=== PATIENT | male | born 1965 | race Caucasian/White ===

== ENCOUNTER 2017-02-11 13:02 | Emergency (ER) | payer MEDICARE, BC ==
[~2017-02-11 13:02] MED LIST: ASPIRIN81 MG PO; COREG 25MG TAB25 MG PO; FLEXERIL 10 MG10 MG PO; HUMALOG100 UNIT/1 SQ; HUMULIN N100 UNIT/1 SQ; HYDROXYZINE HCL25 MG PO; KEPPRA 500 MG500 MG PO; LANSOPRAZOLE30 MG PO; LIPITOR TAB 2020 MG PO; METOCLOPRAMIDE H5 MG PO; NEURONTIN 400400 MG PO; NORVASC 5 MG TAB5 MG PO; OXYCODONE HCL15 MG PO; PLAVIX 75 MG TA75 MG PO; PRED-G 1% EYE DR5 ML OP/OT; PROCRIT10000 UNIT INJ; PROMETHAZINE12.5 M1 PO; RENVELA800 MG PO; SENSIPAR30 MG PO; SYMBICORT 80-41 INHA INH; TRAZODONE HCL100 MG PO; VIRT-VITE PLUS T5 MG PO; VITAMIN D50000 UNIT PO; ZOLOFT100 MG PO
[2017-02-11 14:30] LABS: HEMOGLOBIN 12.1 gm/dl (14.0-17.5); RED BLOOD COUNT 3.87 M/UL (4.20-5.50); WHITE BLOOD COUNT 5.4 K/UL (4.5-11.0)
== END 2017-02-11 17:10 | disposition home or self-care (01) ==
LOC: ER1 13:02
PROVIDERS: Emergency Medicine
DX: E11.649 Type 2 diabetes mellitus with hypoglycemia without coma (principal); E11.22 Type 2 diabetes mellitus with diabetic chronic kidney disease; I11.0 Hypertensive heart disease with heart failure; N18.6 End stage renal disease; D64.9 Anemia, unspecified; D69.6 Thrombocytopenia, unspecified; G40.909 Epilepsy, unspecified, not intractable, without status epilepticus; F17.200 Nicotine dependence, unspecified, uncomplicated; Z99.2 Dependence on renal dialysis
CPT/HCPCS: 36415; 71010; 80053; 82962; 84484; 85025; 93005; 99284

== ENCOUNTER → 2017-03-03 | Outpatient (CLI) | payer MEDICARE, BC | LOC: US 09:55 | DX: R74.0 Nonspecific elevation of levels of transaminase and lactic acid dehydrogenase [LDH] (principal); Z90.49 Acquired absence of other specified parts of digestive tract; N28.89 Other specified disorders of kidney and ureter | CPT/HCPCS: 76705 ==

== ENCOUNTER 2021-03-08 19:06 | Emergency (ER) | payer OTHER ==
[~2021-03-08 19:06] MED LIST changes: +ARTIFICIAL TEAR15 M2 EYEBOTH; -ASPIRIN81 MG PO; +CARDURA4 MG PO; +CENTRUM COMPLE1 EACH PO; +COMBIVENT RESPIM4 GM INH; +COZAAR100 MG PO; +DESYREL 50 MG T50 MG PO; +DILANTIN100 MG PO; +ECOTRIN81 MG PO; +GABAPENTIN100 MG PO; -HUMALOG100 UNIT/1 SQ; -HUMULIN N100 UNIT/1 SQ; +HYDRALAZINE HC100 MG PO; +MEDROL DOSEPAK 24 MG PO; +MEGACE 400400 MG/10 PO; +NORVASC10 MG PO; +PROCARDIA XL60 MG PO; +PROTONIX40 MG PO; +SEROQUEL25 MG PO; +SPIRIVA RESPIMAT4 GM INH; +VANCOMYCIN1 GM/2002 IV; +ZYRTEC10 M3 PO; +ZYRTEC10 MG PO
[2021-03-08 19:47] LABS: HEMOGLOBIN 7.5 gm/dl (14.0-17.5); RED BLOOD COUNT 2.44 M/UL (4.20-5.50); WHITE BLOOD COUNT 2.6 K/UL (4.5-11.0)
[2021-03-20] MEDS ORDERED: RENVELA800 MG PO (01:57)
[2021-03-20] MEDS ORDERED: NOVOLOG 10100 UNITS1 SC (07:20)
[2021-03-20] MEDS ORDERED: NOVOLIN N100 UNIT/1 SC (07:21)
== END 2021-03-09 00:33 | disposition home or self-care (01) ==
LOC: ER1 19:06
PROVIDERS: Family Medicine
DX: I12.0 Hypertensive chronic kidney disease with stage 5 chronic kidney disease or end stage renal disease (principal); N18.6 End stage renal disease; E11.22 Type 2 diabetes mellitus with diabetic chronic kidney disease; D63.1 Anemia in chronic kidney disease; F17.210 Nicotine dependence, cigarettes, uncomplicated; Z90.49 Acquired absence of other specified parts of digestive tract; Z88.5 Allergy status to narcotic agent; Z88.0 Allergy status to penicillin; Z88.8 Allergy status to other drugs, medicaments and biological substances
CPT/HCPCS: 36430; 80053; 85025; 86850; 86900; 86901; 86920; 99283; P9016

== ENCOUNTER 2021-03-20 10:35 | Observation (INO) | payer OTHER ==
[~2021-03-20] VITALS: Ht 182.9 cm; Wt 65.8 kg
[~2021-03-20 10:35] MED LIST changes: +NOVOLIN N100 UNIT/1 SC; +NOVOLOG 10100 UNITS1 SC
[2021-03-20 11:30] LABS: HEMOGLOBIN 7.3 gm/dl (14.0-17.5); RED BLOOD COUNT 2.34 M/UL (4.20-5.50); WHITE BLOOD COUNT 2.9 K/UL (4.5-11.0)
[2021-03-20] MEDS ORDERED: CARDURA 2MG TAB2 MG PO (13:53)
[2021-03-20] MEDS ORDERED: BUTRANS1 EAC2 TD (13:57)
[2021-03-20] MEDS ORDERED: CATAPRES 0.1MG0.1 MG PO (13:58)
[2021-03-20] MEDS ORDERED: MINIPRES CAP 2 M2 MG PO (14:06)
[2021-03-20] MEDS ORDERED: HYDROCODON-ACE1 EAC2 PO (14:07)
[2021-03-20] MEDS ORDERED: MEGACE 400400 MG/10 PO (14:07)
[2021-03-20] MEDS ORDERED: LISINOPRIL20 MG PO (14:11)
[2021-03-20] MEDS ORDERED: SYNTHROID 50 M50 MCG PO (14:11)
[2021-03-20] MEDS ORDERED: LOPRESSOR50 MG PO (14:12)
[2021-03-20] MEDS ORDERED: ASPIRIN81 MG PO (14:15)
[2021-03-21 04:18] LABS: HEMOGLOBIN 7.4 gm/dl (14.0-17.5); RED BLOOD COUNT 2.33 M/UL (4.20-5.50); WHITE BLOOD COUNT 2.8 K/UL (4.5-11.0)
[2021-03-21] MEDS ORDERED: TRAZODONE HCL100 MG PO (12:01)
== END 2021-03-21 18:15 | disposition home or self-care (01) ==
LOC: ER1 10:35 → MED SURG 4 13:22 → CDU 13:22 → MED SURG 4 14:48
PROVIDERS: Emergency Medicine; Physician Assistant Medical; ADMIT Internal Medicine
DX: G93.40 Encephalopathy, unspecified (principal); E87.5 Hyperkalemia; I13.2 Hypertensive heart and chronic kidney disease with heart failure and with stage 5 chronic kidney disease, or end stage renal disease; E11.22 Type 2 diabetes mellitus with diabetic chronic kidney disease; N18.6 End stage renal disease; I50.9 Heart failure, unspecified; D63.1 Anemia in chronic kidney disease; B19.20 Unspecified viral hepatitis C without hepatic coma; E78.5 Hyperlipidemia, unspecified; J44.9 Chronic obstructive pulmonary disease, unspecified; G40.909 Epilepsy, unspecified, not intractable, without status epilepticus; F17.200 Nicotine dependence, unspecified, uncomplicated; D61.818 Other pancytopenia; Z20.822 Contact with and (suspected) exposure to COVID-19; Z79.4 Long term (current) use of insulin; Z79.82 Long term (current) use of aspirin; Z79.899 Other long term (current) drug therapy; Z99.2 Dependence on renal dialysis; Z88.0 Allergy status to penicillin; Z88.5 Allergy status to narcotic agent; Z91.048 Other nonmedicinal substance allergy status
CPT/HCPCS: 36415; 36430; 36600; 70450; 71045; 80048; 80053; 82140; 82272; 82550; 82553; 82803; 82962; 83735; 83874; 84484; 85025; 85027; 85610; 85730; 86850; 86900; 86901; 86920; 87040; 90935; 94640; 94664; 94760; 96374; 99285; G0257; G0378; P9016; U0002

== ENCOUNTER → 2021-11-13 | Outpatient (CLI) | payer OTHER ==
[~2021-11-13] MED LIST changes: +ASPIRIN81 MG PO; +BUTRANS1 EAC2 TD; +CARDURA 2MG TAB2 MG PO; +CATAPRES 0.1MG0.1 MG PO; +HYDROCODON-ACE1 EAC2 PO; +LISINOPRIL20 MG PO; +LOPRESSOR50 MG PO; +MINIPRES CAP 2 M2 MG PO; +SYNTHROID 50 M50 MCG PO
[2021-11-14 07:35] LABS: HEMOGLOBIN 6.1 gm/dl (14.0-17.5)
== END ==
LOC: LAB 16:28
PROVIDERS: Internal Medicine Nephrology
DX: Z53.9 Procedure and treatment not carried out, unspecified reason (principal)
CPT/HCPCS: 36415; 85014; 85018; 86850; 86900; 86901; 86920; P9016

== ENCOUNTER → 2021-11-14 | Outpatient (CLI) | payer OTHER | LOC: OPSV 08:00 | DX: N18.9 Chronic kidney disease, unspecified (principal); D63.1 Anemia in chronic kidney disease | CPT/HCPCS: 36430; J7050 ==

== ENCOUNTER 2022-04-29 06:21 | Inpatient (IN) | payer OTHER ==
[~2022-04-29] VITALS: Ht 182.9 cm; Wt 58.7 kg
[~2022-04-29 06:21] MED LIST changes: +ASPIRIN EC81 MG PO; -ASPIRIN81 MG PO; +CLINDAMYCIN HC150 MG PO; +CYCLOBENZAPRINE10 MG PO; -FLEXERIL 10 MG10 MG PO; -LIPITOR TAB 2020 MG PO; +LIPITOR40 MG PO; +LOPRESSOR100 MG PO; -LOPRESSOR50 MG PO; +MEGACE TAB 40 M40 MG PO; -NOVOLOG 10100 UNITS1 SC; +NOVOLOG FL100 UNIT/1 INJ; -SEROQUEL25 MG PO; +SEROQUEL50 MG PO; +SULFAMETHOXAZO1 EACH PO
[2022-04-29 07:06] LABS: HEMOGLOBIN 8.6 gm/dl (14.0-17.5); RED BLOOD COUNT 2.68 M/UL (4.20-5.50); WHITE BLOOD COUNT 4.7 K/UL (4.5-11.0)
[2022-04-29] MEDS ORDERED: MELATONIN10 M2 PO (14:37)
[2022-04-29] MEDS ORDERED: DIALYVITE TABL1 EACH PO (14:37)
[2022-04-29] MEDS ORDERED: CLONIDINE HCL0.2 MG PO (14:39)
[2022-04-29] MEDS ORDERED: HYDROXYZINE HCL25 MG PO (14:47)
[2022-04-29] MEDS ORDERED: NOVOLIN N100 UNIT/1 SQ (14:51)
[2022-04-29] MEDS ORDERED: RENA-VITE TABL0.8 MG PO (14:57)
[2022-04-29] MEDS ORDERED: COMBIVENT RESPIM4 GM INH (15:03)
[2022-04-30 03:06] LABS: HEMOGLOBIN 8.1 gm/dl (14.0-17.5); RED BLOOD COUNT 2.57 M/UL (4.20-5.50); WHITE BLOOD COUNT 3.2 K/UL (4.5-11.0)
[2022-04-30 08:19] LABS: HBSAG SCREEN Negative (Negative); HCV AB 0.2 (0.0-0.9); HEP A AB, IGM Negative (Negative); HEP B CORE AB, IGM Negative (Negative)
[2022-05-01 14:07] LABS: HEMOGLOBIN 9.7 gm/dl (14.0-17.5)
[2022-05-01 14:08] LABS: RED BLOOD COUNT 3.05 M/UL (4.20-5.50); WHITE BLOOD COUNT 4.7 K/UL (4.5-11.0)
== END 2022-05-01 18:00 | DRG 535 ==
LOC: ER1 06:21 → CDU 11:45 → PROG CARE 12:06
PROVIDERS: Internal Medicine Nephrology; Physician Assistant; ADMIT Internal Medicine Infectious Disease
PROC: 5A1D70Z Performance of Urinary Filtration, Intermittent, Less than 6 Hours Per Day (ICD-10-PCS; 2022-04-29)
PROC: B24BZZZ Ultrasonography of Heart with Aorta (ICD-10-PCS; principal; 2022-04-30)
DX: S72.141A Displaced intertrochanteric fracture of right femur, initial encounter for closed fracture (principal); I21.A1 Myocardial infarction type 2; J96.01 Acute respiratory failure with hypoxia; Z20.822 Contact with and (suspected) exposure to COVID-19; N18.6 End stage renal disease; L02.31 Cutaneous abscess of buttock; J90 Pleural effusion, not elsewhere classified; I13.2 Hypertensive heart and chronic kidney disease with heart failure and with stage 5 chronic kidney disease, or end stage renal disease; I50.32 Chronic diastolic (congestive) heart failure; G40.909 Epilepsy, unspecified, not intractable, without status epilepticus; E78.5 Hyperlipidemia, unspecified; B19.20 Unspecified viral hepatitis C without hepatic coma; Z96.698 Presence of other orthopedic joint implants; F41.9 Anxiety disorder, unspecified; D63.1 Anemia in chronic kidney disease; D69.6 Thrombocytopenia, unspecified; F32.A Depression, unspecified; W18.30XA Fall on same level, unspecified, initial encounter; F17.210 Nicotine dependence, cigarettes, uncomplicated; E27.9 Disorder of adrenal gland, unspecified; D17.9 Benign lipomatous neoplasm, unspecified; L89.159 Pressure ulcer of sacral region, unspecified stage; I08.0 Rheumatic disorders of both mitral and aortic valves; E03.9 Hypothyroidism, unspecified; E10.22 Type 1 diabetes mellitus with diabetic chronic kidney disease; R53.81 Other malaise; Z99.2 Dependence on renal dialysis; Z79.01 Long term (current) use of anticoagulants; Z79.82 Long term (current) use of aspirin; Y92.091 Bathroom in other non-institutional residence as the place of occurrence of the external cause; Z90.49 Acquired absence of other specified parts of digestive tract; Z88.0 Allergy status to penicillin; Z83.3 Family history of diabetes mellitus; Z84.1 Family history of disorders of kidney and ureter; Z79.4 Long term (current) use of insulin; Z98.890 Other specified postprocedural states; Z88.6 Allergy status to analgesic agent; Z99.3 Dependence on wheelchair
CPT/HCPCS: ECHO; 36415; 36600; 70450; 71045; 71250; 72125; 73502; 73700; 80053; 80074; 80202; 82550; 82553; 82803; 82962; 83605; 83735; 84100; 84484; 85025; 85610; 87040; 87070; 87205; 90937; 93005; 93306; 94640; 94760; 96374; 96375; 96376; 99285; J0692; J0696; J1170; J1885; J2405; J3010; J3370; J7070; U0002